=== PATIENT | female | born 1995 | race Caucasian/White ===

== ENCOUNTER 2020-03-24 19:23 | Emergency (ER) | payer OTHER ==
[~2020-03-24 19:23] MED LIST: FLOMAX0.4 MG PO; MACROBID100 MG PO; NAPROXEN500 MG PO; NORCO 7.5-3251 EACH PO
[2020-03-24 20:29] LABS: BASOPHIL 0.8 % (0-2); EOSINOPHIL 2.2 % (0-5); HCT 44.3 % (37.0-47.0); HGB 14.9 g/dl (12.5-16.0); LYMPHOCYTE 15.1 % (15-48); MCH 30.3 pg (25.0-31.0); MCHC 33.6 g/dL (32.0-36.0); MCV 90.2 fL (78.0-100.0); MONOCYTE 5.7 % (0-12); MPV 10.1 fL (6.0-9.5); NEUTROPHIL 75.9 % (41-80); NRBC 0; PLT 288 K/uL (150-400); RBC 4.91 M/uL (4.20-5.40); WBC 10.2 K/uL (4.0-10.5)
[2020-03-24 20:31] LABS: BILIRUBIN 1+ mg/dL (NEGATIVE); BLOOD 3+ Ery/uL (NEGATIVE); CLARITY CLEAR (CLEAR); COLOR YELLOW (YELLOW); GLUCOSE (U) NORMAL (NORMAL); LEUKOCYTES NEGATIVE Leu/uL (NEGATIVE); NITRITE NEGATIVE (NEGATIVE); PROTEIN TRACE (LOW) mg/dL (NEGATIVE); SPECIFIC GRAVITY >=1.030 (1.001-1.030); UROBILINOGEN 0.2 mg/dL (0.2-1.0)
[2020-03-24 20:48] LABS: ALBUMIN 4.5 g/dL (3.4-5.0); BILIRUBIN - TOTAL 0.4 mg/dL (0.2-1.0); BUN/CREAT RATIO (CALC) 11.6 RATIO; CREATININE 0.95 mg/dL (0.51-0.95); GLOBULIN (CALCULATION) 3.6 g/dL; PHOSPHORUS 3.3 mg/dL (2.6-4.7); TOTAL PROTEIN 8.1 g/dL (6.4-8.2)
[2020-03-24 20:54] LABS: BACTERIA 1+; MUCOUS MODERATE
[2020-03-24 20:55] LABS: URINARY WBC RARE
[2020-03-24] MEDS ORDERED: ZOFRAN4 M1 PO (22:37)
[2020-03-24] MEDS ORDERED: FLOMAX 0.4 MG0.4 MG PO (22:37)
[2020-03-24] MEDS ORDERED: NORCO 5-325 TA1 EACH PO (22:37)
== END 2020-03-24 22:47 | disposition home or self-care (01) ==
LOC: FER 19:23
PROVIDERS: Emergency Medicine Emergency Medical Services
DX: N13.2 Hydronephrosis with renal and ureteral calculous obstruction (principal); F17.290 Nicotine dependence, other tobacco product, uncomplicated; Z87.442 Personal history of urinary calculi
CPT/HCPCS: 36415; 80053; 81001; 84100; 85025; J1170; J2405; J7030

== ENCOUNTER 2020-05-23 08:34 | Emergency (ER) | payer OTHER ==
[~2020-05-23 08:34] MED LIST changes: +FLOMAX 0.4 MG0.4 MG PO; +NORCO 5-325 TA1 EACH PO; +ZOFRAN4 M1 PO
[2020-05-23] MEDS ORDERED: CYCLOBENZAPRINE10 MG PO (08:57)
== END 2020-05-23 09:06 | disposition home or self-care (01) ==
LOC: FER 08:34
DX: S46.912A Strain of unspecified muscle, fascia and tendon at shoulder and upper arm level, left arm, initial encounter (principal); X58.XXXA Exposure to other specified factors, initial encounter
CPT/HCPCS: 99283

== ENCOUNTER 2021-05-23 21:49 | Emergency (ER) | payer OTHER ==
[~2021-05-23 21:49] MED LIST changes: +CYCLOBENZAPRINE10 MG PO
[2021-05-23] MEDS ORDERED: ONDANSETRON ODT4 MG PO (22:58)
== END 2021-05-23 23:15 | disposition home or self-care (01) ==
LOC: FER 21:49
DX: S06.0X0A Concussion without loss of consciousness, initial encounter (principal); F17.200 Nicotine dependence, unspecified, uncomplicated; W54.1XXA Struck by dog, initial encounter; Y92.009 Unspecified place in unspecified non-institutional (private) residence as the place of occurrence of the external cause
CPT/HCPCS: 70450

== ENCOUNTER 2021-09-20 01:50 | Emergency (ER) | payer OTHER, MEDICAID ==
[~2021-09-20 01:50] MED LIST changes: +ONDANSETRON ODT4 MG PO
[2021-09-20] MEDS ORDERED: KEFLEX250 MG PO (02:51)
== END 2021-09-20 03:06 | disposition home or self-care (01) ==
LOC: FER 01:50
DX: S51.811D Laceration without foreign body of right forearm, subsequent encounter (principal); F17.290 Nicotine dependence, other tobacco product, uncomplicated; V89.2XXD Person injured in unspecified motor-vehicle accident, traffic, subsequent encounter
CPT/HCPCS: 99282; J1885